=== PATIENT | female | born 1945 ===

== ENCOUNTER 2017-07-04 08:56 | Inpatient (IN) | payer OTHER ==
[2017-07-05] MEDS ORDERED: DUI500 PO (09:06)
[2017-07-05] MEDS ORDERED: OXYC1TAB9 PO (09:06)
== END 2017-07-05 14:04 | disposition home or self-care (01) | DRG 483 ==
LOC: CIR.AMB 08:56 → SURH 18:23
PROVIDERS: Orthopaedic Surgery Sports Medicine
PROC: 0RRJ00Z Replacement of Right Shoulder Joint with Reverse Ball and Socket Synthetic Substitute, Open Approach (ICD-10-PCS; principal; 2017-07-04 09:30)
DX: M19.011 Primary osteoarthritis, right shoulder (principal); M75.121 Complete rotator cuff tear or rupture of right shoulder, not specified as traumatic